=== PATIENT | female | born 1980 | race Caucasian/White ===

== ENCOUNTER 2016-08-11 15:54 | Emergency (ER) | payer MEDICAID ==
[2016-08-11] MEDS ORDERED: Ipratropium Neb 0.5 mg/2.5 mL UD HHN ONE ×2 (16:31→16:39)
[2016-08-11] MEDS ORDERED: Albuterol Nebulizer 2.5mg/3mL HHN ONE ×2 (16:31→16:39)
--- NOTE | 2016-08-11 16:39 | ED Physician Chart ---
Chief Complaint/HPI - Patient Information Date Seen:: 08/11/16 Time Seen:: 16:20 Chief Complaint:: shortness of breath History of Present Illness:: Shortness of breath and pleuritic sharp substernal chest pain and shortness of breath started yesterday. Patient's temperature was 101 last night. A cough productive of green sputum started yesterday. Allergies:: Allergies Allergy/AdvReac Type Severity Reaction Status Date / Time Penicillins [PCN] Allergy Verified 08/11/16 16:01 Vitals:: Vital Signs - 8 hr 08/11/16 15:54 Temp 97.7 F HR 106 RR 20 BP 131/67 O2 Sat % 98 Historian:: Patient Review:: Nurse's Note Reviewed Review of Systems - Review of Systems General/Constitutional: Fever Skin: No skin lesions Head: No headache Eyes: No loss of vision ENT: No earache Neck: No neck pain, No swelling Cardio Vascular: Chest pain Pulmonary: Cough, Sputum GI: No nausea, No vomiting G/U: No dysuria, No frequency Musculoskeletal: No bone or joint pain Endocrine: No polyuria Psychiatric: No prior psych history Hematopoietic: No bruising Allergic/Immuno: No urticaria, No angioedema Neurological: No syncope, No headache Past Medical History - Past Medical History Past Medical History: DM, Asthma/COPD Family History: Heart disease, Diabetes Melitus, HTN Social History: Smoker, Other (smokes 1 pack of cigarettes per day) Surgical History: Appendectomy, other (tonsillectomy) Psychiatricy History: None Family Medical History - Family Member Mother Hx Family Cancer: Yes Physical Exam - Physical Examination General/Constitutional: Well-developed, well-nourished, Alert, No distress Head: Atraumatic Eyes: Lids, conjuctiva normal, PERRL Skin: Nl inspection, No rash ENMT: External ears, nose nl, TM canals nl, Nasal exam nl, Lips, teeth, gums nl , Oropharynx nl, Tonsils nl Neck: No nuchal rigidity Respiratory: Nl effort/Exclusion, Clear to Auscultation, No Wheeze/Rhonchi/Rales Cardio Vascular: RRR, No murmur, gallop, rubs, NL S1 S2 GI: No tenderness/rebounding/guarding : No CVA tenderness Extremities: Normal digits & nails Neuro/Psych: Alert/oriented, No focal deficits Misc: Normal back Labs/Radiology/EKG Results - Radiology Results Results: CXR negative; no cardiomegaly - EKG Interpretations Rate & Rhythm: normal sinus rhythm with rate of 93 Neal: normal Comments:: Low-voltage Assessment - Assessment General Assessment: Patient felt better after the albuterol/atrovent breathing treatment. Chest x- ray was clear to auscultation after the breathing treatment; heart sounds were faint; patient did not have neck pain distention at about 45 head elevation but the plan was to do an echocardiogram because she had decreased heart sounds , pleuritic chest pain and low voltage EKG. The patient eloped as 1612 because the patient in the next bed was yelling frequently. ED Septic Shock - . Is Septic Shock (SBP<90, OR Lactate>4 mmol\L) present?: No - <6hrs of presentation: Vital Signs: Vital Signs - 8 hr 08/11/16 15:54 Temp 97.7 F HR 106 RR 20 BP 131/67 O2 Sat % 98 Reassessment (Disposition) - Reassessment Reassessment Condition:: Improved - Diagnosis Diagnosis:: Atypical chest pain; asthma; consider pericardial effusion - Patient Disposition Discharge/Transfer:: Elope/AWOL Condition at Disposition:: Stable, Improved ED Discharge Plan - Patient Disposition Admit/Discharge/Transfer: PATIENT ELOPED Condition at Disposition: Stable
--- NOTE | 2016-08-12 09:33 | Diagnostic Imaging Report ---
CHEST X-RAY: AP view INDICATION: Cough COMPARISON: None FINDINGS: Patient is slightly rotated. There is no focal consolidation or pleural effusions The heart is normal in size. The osseous structures demonstrate no acute abnormalities. Artifact or external material seen measuring 3 mm overlying the left hemithorax. IMPRESSION: No focal airspace consolidation identified.
== END 2016-08-11 18:12 | disposition left against medical advice (07) ==
LOC: ER 15:54
DX: J45.909 Unspecified asthma, uncomplicated (principal); R07.89 Other chest pain; J44.9 Chronic obstructive pulmonary disease, unspecified; E11.9 Type 2 diabetes mellitus without complications; F17.210 Nicotine dependence, cigarettes, uncomplicated; Z90.49 Acquired absence of other specified parts of digestive tract; Z88.0 Allergy status to penicillin
CPT/HCPCS: 71010-TC; 81025-TC; 90779; 93005; 94640; J7613